=== PATIENT | female | born 1970 | race African-American/Black ===

== ENCOUNTER 2017-03-21 08:46 | Emergency (ER) | payer OTHER ==
[~2017-03-21] VITALS: Ht 162.6 cm; Wt 112.0 kg
--- NOTE | ~2017-03-21 | EKG ---
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
[~2017-03-21 08:46] MED LIST: ACETAMINOPHEN-120 ML PO; BACTRIM DS TAB1 EACH PO; CLEOCIN100 MG VAG; DIFLUCAN150 MG PO; FLAGYL500 MG PO; IBUPROFEN 200200 M1 PO; IBUPROFEN 400400 M1 PO; IBUPROFEN 600600 M1 PO; KEFLEX500 MG PO; NAPROSYN500 MG; NAPROSYN500 MG PO; NOHOMEMEDICATIONS; NORCO 5-325 TA1 EACH PO; PERCOCET; PHENERGAN 25 MG25 M1 PO; TOBREX5 ML OPHTHALMIC; VICODIN 5-5001 EACH PO; ZOFRAN4 MG; [UNRECOGNIZED DRUG - OTHER]
[2017-03-21 09:11] LABS: URINE BILIRUBIN NEGATIVE (Negative); URINE BLOOD TRACE (Negative); URINE COLOR YELLOW; URINE GLUCOSE-RANDOM* NEGATIVE (Negative); URINE KETONES NEGATIVE (Negative); URINE NITRITE NEGATIVE (Negative); URINE PROTEIN (DIPSTICK) NEGATIVE (Negative); URINE UROBILINOGEN 0.2 E.U./dl (0.2-1.0)
[2017-03-21 09:33] LABS: ABSOLUTE NEUTROPHILS 3.7 thou/uL (1.4-8.2); BASOPHILS 0.2 % (0.0-2.0); EOSINOPHILS 1.5 % (0.0-3.0); HEMATOCRIT 36.3 % (37.0-47.0); HEMOGLOBIN 12.3 gm/dL (12.0-15.0); LYMPHOCYTES 29.1 % (24.0-44.0); MCH 27.5 pg (26.0-34.0); MCHC 33.8 g/dL (28.0-37.0); MCV 81.4 fL (80.0-100.0); MONOCYTES 6.7 % (1.0-8.0); PLATELET COUNT 318 thou/uL (150-400); POLYS 62.5 % (36.0-66.0); RBC 4.47 mil/uL (4.20-5.00); RDW 15.5 % (10.5-14.5); WBC 5.8 thou/uL (4.0-11.0)
[2017-03-21 09:41] LABS: ANION GAP 8 mmol/L (7-16); BUN 13 mg/dL (7-18); CHLORIDE 105 mmol/L (98-107); CO2 28 mmol/L (21-32); CREATININE 0.8 mg/dL (0.6-1.0); GLUCOSE 95 mg/dL (74-106); MANUAL DIFF NO; POTASSIUM 3.8 mmol/L (3.5-5.1); SODIUM 141 mmol/L (136-145)
[2017-03-21 09:52] LABS: ALBUMIN 3.1 g/dL (3.4-5.0); ALKALINE PHOSPHATASE 78 U/L (46-116); DIRECT BILIRUBIN < 0.1 mg/dL (<0.1-0.3); SGOT 14 U/L (15-37); SGPT 17 U/L (30-65); TOTAL BILIRUBIN 0.3 mg/dL (<0.1-1.0); TOTAL PROTEIN 7.4 g/dL (6.4-8.2)
[2017-03-21] MEDS ORDERED: CARAFATE 1 GM TA1 G1 PO (13:59)
[2017-03-21] MEDS ORDERED: OMEPRAZOLE40 MG PO (13:59)
[2017-03-21 14:09] VITALS: BP 133/82
== END 2017-03-21 14:11 | disposition home or self-care (01) ==
LOC: ER 08:46
PROVIDERS: Nurse Practitioner
DX: R11.2 Nausea with vomiting, unspecified (principal); R51 Headache; Z98.890 Other specified postprocedural states